=== PATIENT | male | born 1945 | race Caucasian/White ===

== ENCOUNTER 2019-05-27 08:58 | Outpatient (CLI) | payer OTHER | END 2019-05-27 21:06 | disposition home or self-care (01) | LOC: MCT 08:58 | DX: M25.512 Pain in left shoulder (principal) | CPT/HCPCS: 73200 ==

== ENCOUNTER 2019-05-29 09:36 | Outpatient (CLI) | payer OTHER ==
[2019-05-29] MEDS ORDERED: LIDOCAINE 1% 500 MG/50 ML VIAL ONE (11:24)
== END 2019-05-29 20:53 | disposition home or self-care (01) ==
LOC: MCT 09:36
DX: M54.5 Low back pain (principal)
CPT/HCPCS: 72270; J2001